=== PATIENT | female | born 1975 | race Caucasian/White ===

== ENCOUNTER 2018-05-10 10:00 | Inpatient (IN) | payer OTHER ==
[~2018-05-10] VITALS: Ht 160 cm; Wt 63.5 kg
== END 2018-05-19 09:18 | DRG 743 ==
LOC: O/R 05-16 08:14 → OB/GYN 05-16 08:14 → SURH 05-16 09:00 → OB/GYN 05-16 15:53
PROVIDERS: Obstetrics & Gynecology
PROC: 0UT90ZZ Resection of Uterus, Open Approach (ICD-10-PCS; principal; 2018-05-16 09:00)
PROC: 0UT70ZZ Resection of Bilateral Fallopian Tubes, Open Approach (ICD-10-PCS; 2018-05-16 09:00)
DX: D25.1 Intramural leiomyoma of uterus (principal); N80.0 Endometriosis of uterus; N83.8 Other noninflammatory disorders of ovary, fallopian tube and broad ligament; Z88.0 Allergy status to penicillin